=== PATIENT | female | born 1995 | race Caucasian/White ===

== ENCOUNTER 2018-10-31 19:09 | Emergency (ER) | payer OTHER ==
[2018-10-31 19:25] VITALS: RESP 20
[2018-10-31] MEDS ORDERED: Sodium Chloride 0.9% 1,000 ML IV ONE (21:12)
[2018-10-31 21:34] LABS: BASO # 0.1 K/uL (0.0-0.2); BASO % 1.1 % (0.0-2.0); EOS # 0.2 K/uL (0.0-0.7); EOS % 3.1 % (0.0-4.0); HEMOGLOBIN 14.2 g/dL (11.0-16.0); LYMPH # 3.3 K/uL (1.0-4.3); LYMPH % 41.9 % (20.0-40.0); MEAN CELL VOLUME 85.6 fL (81.0-99.0); MEAN CORPUSCULAR HGB CONC 33.9 g/dL (33.0-37.0); MONO # 0.5 K/uL (0.0-0.8); MONO % 6.1 % (0.0-10.0); NEUT # 3.8 K/uL (1.8-7.0); NEUT % 47.8 % (50.0-75.0); NRBC % 0.1 % (0.0-2.0); RBC 4.9 Mil/uL (3.80-5.20); RED CELL DISTRIBUTION WIDTH 11.4 % (11.5-14.5); WHITE BLOOD COUNT 7.9 K/uL (4.8-10.8)
[2018-10-31 21:48] LABS: ALB/GLOB RATIO 1.4 (1.0-2.1); ALBUMIN 4.5 g/dL (3.5-5.0); ALT/SGPT 24 U/L (9-52); AST/SGOT 21 U/L (14-36); BLOOD UREA NITROGEN 11 mg/dL (7-17); CALCIUM 9.6 mg/dl (8.6-10.4); GFR NON-AFRICAN AMERICAN > 60; LIPASE 79 U/L (23-300)
[2018-10-31 22:01] LABS: HCG,QUALITATIVE URINE NEGATIVE (NEGATIVE)
[2018-10-31] MEDS ORDERED: Piperacillin/Tazobact 3.375 gm 100 ML IVPB ONE (22:05)
[2018-10-31 22:09] LABS: SQUAMOUS EPITHIAL 15 /hpf (0-5); URINE AMORPHOUS SEDIMENT RARE /ul (<OCC); URINE BACTERIA RARE (<OCC); URINE BILIRUBIN NEGATIVE (NEGATIVE); URINE BLOOD NEGATIVE (NEGATIVE); URINE CLARITY Hazy (Clear); URINE COLOR Yellow (YELLOW); URINE GLUCOSE (UA) NORMAL (Normal); URINE LEUKOCYTE ESTERASE NEG Leu/uL (Negative); URINE PROTEIN 1+ mg/dL (NEGATIVE); URINE UROBILINOGEN NORMAL mg/dL (0.2-1.0)
--- NOTE | 2018-10-31 22:18 | C.PDOC ---
History Of Present Illness 23 year old female presents to the ED for evaluation of epigastric abdominal discomfort which began while she was driving this afternoon. Patient also reports feeling an associated chest tightness as well. [facility], but [facility] and now presents to the ED for further evaluation. Patient reports she has been experiencing similar discomfort intermittently over the past 3 months. Patient states she was on a ketogenic diet for a while and resumed her usual diet a couple days ago. Patient was evalu ated by her PMD in the past and told she has gastritis. 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 Patient currently reports heaviness to chest, upper back and abdomen associated with mild nausea. Patient denies fever, chills, cough, URI symptoms. Time Seen by Provider: 10/31/18 20:19 Chief Complaint (Nursing): Abdominal Pain History Per: Patient History/Exam Limitations: no limitations Onset/Duration Of Symptoms: Hrs Current Symptoms Are (Timing): Still Present Location Of Pain/Discomfort: Epigastric Quality Of Discomfort: "Pain" Associated Symptoms: denies: Fever, Chills Additional History Per: Patient Past Medical History Reviewed: Historical Data, Nursing Documentation, Vital Signs Vital Signs: Last Vital Signs Temp 97.8 F 10/31/18 19:20 Pulse 77 10/31/18 19:20 Resp 20 10/31/18 19:20 BP 122/80 10/31/18 19:20 Pulse Ox 99 10/31/18 19:20 - Medical History PMH: No Chronic Diseases Denies: Chronic Kidney Disease Surgical History: No Surg Hx Family History: States: Unknown Family Hx - Social History Hx Alcohol Use: Yes Hx Substance Use: No - Immunization History Hx Tetanus Toxoid Vaccination: No Hx Influenza Vaccination: No Hx Pneumococcal Vaccination: No Review Of Systems Constitutional: Negative for: Fever, Chills Cardiovascular: Positive for: Other (chest tightness and heaviness ) Gastrointestinal: Positive for: Abdominal Pain Musculoskeletal: Positive for: Back Pain (upper ) Physical Exam - Physical Exam Appears: Non-toxic, No Acute Distress Skin: Normal Color, Warm, Dry Head: Atraumatic, Normacephalic Eye(s): bilateral: Normal Inspection Oral Mucosa: Moist Neck: Supple Chest: Symmetrical, No Deformity, No Tenderness Cardiovascular: Rhythm Regular, No Murmur Respiratory: Normal Breath Sounds, No Rales, No Rhonchi, No Wheezing Gastrointestinal/Abdominal: Bowel Sounds (unremarkable ), Soft, No Tenderness, No Guarding, No Rebound Extremity: Normal ROM, Capillary Refill (less than 2 seconds ) Neurological/Psych: Oriented x3, Normal Speech, Normal Cognition Gait: Steady ED Course And Treatment - Laboratory Results Result Diagrams: 10/31/18 21:28 10/31/18 21:28 Lab Interpretation: No Acute Changes O2 Sat by Pulse Oximetry: 99 (on RA) Pulse Ox Interpretation: Normal Progress Note: Bloodwork, urinalysis, EKG ordered and reviewed. Protonix IVP and IV Fluids given. Reevaluation Time: 22:26 Reassessment Condition: Improved Disposition Counseled Patient/Family Regarding: Studies Performed, Diagnosis, Need For Followup - Disposition Referrals: Александр Li MD [Staff Provider] - Disposition: HOME/ ROUTINE Disposition Time: 22:26 Condition: IMPROVED Instructions: Acid Reflux (Gastroesophageal Reflux Disease) in Adults, Stomach Ache and Stomach Upset Forms: [employer] ([place]) - Clinical Impression Clinical Impression: Abdominal pain, Gastroesophageal reflux disease - Scribe Statement The provider has reviewed the documentation as recorded by the Scribe (Toyin Mccray) Provider Attestation: All medical record entries made by the Scribe were at my direction and personally dictated by me. I have reviewed the chart and agree that the record accurately reflects my personal performance of the history, physical exam, medical decision making, and the department course for this patient. I have also personally directed, reviewed, and agree with the discharge instructions and disposition.
[2018-10-31 22:50] VITALS: BP 121/78; PULSE 84; TEMP 97.1; O2SAT 98
--- NOTE | 2018-11-01 10:51 | CARD ---
APPROVED REPORT Date of service: 10/31/2018 EKG Measurement Heart [id number] [id number] <Conclusion> Ectopic atrial rhythm Otherwise normal ECG
== END 2018-10-31 22:50 | disposition home or self-care (01) ==
LOC: C.ER 19:09
DX: K21.9 Gastro-esophageal reflux disease without esophagitis (principal); R10.9 Unspecified abdominal pain
CPT/HCPCS: 80053; 81001; 83690; 84703; 85025; 93005; 96374; 99285; C9113; J7030